=== PATIENT | male | born 1960 | race Two or more races ===

== ENCOUNTER 2018-10-23 09:46 | Emergency (ER) | payer OTHER ==
[~2018-10-23] VITALS: Ht 170.2 cm; Wt 77.6 kg
[2018-10-23 10:10] LABS: BASOPHILS % (AUTO) 0.3 % (0.0-2.0); EOSINOPHILS % (AUTO) 0.1 % (0.0-6.0); HEMATOCRIT 44 % (39-51); HEMOGLOBIN 15.2 g/dL (13.5-17.5); LYMPHOCYTES % (AUTO) 9.7 % (20.0-44.0); MEAN CORPUSCULAR HGB CONC 35 g/dl (31.0-36.0); MEAN CORPUSCULAR VOLUME 97 fL (80-96); MONOCYTES # (AUTO) 0.4 /CMM (0.1-1.30); MONOCYTES % (AUTO) 3.6 % (2.0-12.0); NEUTROPHILS # (AUTO) 8.5 /CMM (1.8-8.9); NEUTROPHILS % (AUTO) 86.3 % (43.0-81.0); PLATELET COUNT (AUTO) 268 /CMM (150-450); RED BLOOD CELL COUNT(AUTO) 4.55 MIL/uL (4.5-6.0); WHITE BLOOD COUNT (AUTO) 9.9 K/uL (4.3-11.0)
[2018-10-23 10:16] LABS: CALCIUM, SERUM 8.8 mg/dL (8.5-10.1); CARBON DIOXIDE 23 mmol/L (21-32); CHLORIDE 105 mmol/L (98-107); CREATININE 0.8 mg/dL (0.6-1.3); GLUCOSE 110 mg/dL (74-106); SODIUM SERUM 138 mmol/L (136-145); UREA NITROGEN, BLOOD 10 mg/dL (7-18)
[2018-10-23] MEDS ORDERED: ASPIRIN 325 MG TABLET ONE (10:28)
[2018-10-23] MEDS ORDERED: ASPIRIN 81 MG TAB.CHEW PO ONE (10:30)
[2018-10-23 10:31] LABS: B-TYPE NATRIURETIC PEPTIDE 29 PG/ML (0-125)
--- NOTE | 2018-10-23 10:31 | NUR ---
ROBERT FROM LONG TERM FOR BOOKING. TO ER BED 12. AAOX4. NO RESP DISTRESS NOTED, BREATHING EVEN AND UNLABORED. BROUGHT IN FOR C/O MID CHEST PAIN 3/10 WITH FEELING OF PRESSURE STARTED 8AM THIS MORNING. PT REPORT DIZZYNESS AND HEADACHE WELL. MD AT BEDSIDE. AWAITING ORDER
[2018-10-23] MEDS ORDERED: LORAZEPAM INJ 2 MG/ML VIAL IV ONE (11:00)
[2018-10-23] MEDS ORDERED: LORAZEPAM INJ 2 MG/ML VIAL ONE (11:03)
[2018-10-23 12:31] VITALS: BP 139/86
--- NOTE | 2018-10-23 13:09 | NUR ---
REPORT GIVEN TO REYNALDO ROGERS AND REYNALDO CROSS FOR SAM
--- NOTE | 2018-10-23 13:58 | NUR ---
Patient discharged to home in stable condition. Written and verbal after care instructions given. Patient verbalizes understanding of instruction. IV removed. Catheter intact and site benign. Pressure and 4x4 applied to site. No bleeding noted.
== END 2018-10-23 14:01 ==
LOC: ER 09:49
DX: R07.89 Other chest pain (principal); F43.9 Reaction to severe stress, unspecified; I10 Essential (primary) hypertension
CPT/HCPCS: 36415; 71045; 80048; 83880; 84484 ×2; 85025; 85730; 93005 ×2; 96374; 99284; J2060